=== PATIENT | female | born 1935 | race Caucasian/White ===

== ENCOUNTER 2018-12-24 13:10 | Observation (INO) ==
[2018-12-24] MEDS ORDERED: ONDANSETRON 4 MG/2 ML VIAL IV STA (14:11)
[2018-12-24] MEDS ORDERED: ONDANSETRON 4 MG/2 ML VIAL ONE ×2 (14:11→14:12)
[2018-12-24] MEDS ORDERED: DILTIAZEM 50 MG/10 ML VIAL IV STA (14:11)
[2018-12-24] MEDS ORDERED: DILTIAZEM 25 MG/5 ML VIAL IV ONE (14:12)
[2018-12-24 14:14] LABS: Basophils % 0.5 % (0.0-0.8); Eosinophils # 0.4 10*3/uL (0.0-0.87); Eosinophils % 4.9 % (0.00-10.9); Hematocrit 41.6 VOL% (35.7-47.0); Hemoglobin 13.6 GM/DL (12.0-16.0); Immature Granulocytes % 0.4 %; Immature Granulocytes Absolute 0.03 #; Lymphocytes % 38.1 % (21.3-54.2); Mean Corpuscular HGB Conc 32.7 GM/DL (32-36); Mean Corpuscular Hemoglobin 33 PG (27-34); Mean Platelet Volume 11.3 FL (9.6-12.0); Monocytes # 0.4 10*3/uL (0.11-0.8); Monocytes % 5.5 % (1.7-12.7); Neutrophils # 3.9 10*3/uL (1.4-7.4); Neutrophils % 50.6 % (38.7-73.9); Platelet Count 275 T/CUMM (130-400); Red Blood Count 4.16 MC/CUMM (3.8-5.5); Red Cell Distribution Width 12.3 % (9.3-17.3); White Blood Count 7.8 T/CUMM (4-12)
[2018-12-24] MEDS ORDERED: METOPROLOL TARTRATE 5 MG/5 ML VIAL IV STA (14:19)
[2018-12-24] MEDS ORDERED: METOPROLOL TARTRATE 5 MG/5 ML VIAL IV ONE (14:20)
[2018-12-24 14:24] LABS: INR 0.9; PT Patient Result 9.9 SECS; Partial Thromboplastin Time 23.8 SECS (0-40)
[2018-12-24 14:40] LABS: Albumin 3.7 G/DL (3.4-5.0); Bilirubin,Total 0.9 MG/DL (0.2-1.0); Calcium 9.1 MG/DL (8.5-10.1); Osmolality,Calculated 290.3 MOS/KG (273-304); Potassium 3.4 MMOL/L (3.5-5.1); Total Protein 7.3 G/DL (6.4-8.3)
[2018-12-24 14:47] LABS: Troponin I < 0.015 NG/ML (0.00-0.045)
[2018-12-24] MEDS ORDERED: PROMETHAZINE 25 MG/1 ML VIAL IM PRN (15:25)
[2018-12-24] MEDS ORDERED: ONDANSETRON 4 MG/2 ML VIAL IV PRN (15:25)
[2018-12-24] MEDS ORDERED: ACETAMINOPHEN 325 MG TABLET PO PRN (15:25)
[2018-12-24] MEDS ORDERED: POTASSIUM CHLORIDE 20 MEQ TABLET PO STA (15:29)
[2018-12-24] MEDS ORDERED: SUCRALFATE 1 GM TABLET PO PRN (15:30)
[2018-12-24] MEDS ORDERED: FEXOFENADINE 180 MG TABLET PO PRN (15:30)
[2018-12-24] MEDS ORDERED: BENZONATATE 100 MG CAPSULE PO PRN (15:30)
[2018-12-24] MEDS ORDERED: PANTOPRAZOLE 40 MG TABLET PO PRN (15:30)
[2018-12-24] MEDS ORDERED: DEXTROSE 50% 25 GM/50 ML SYRINGE IV PRN (15:53)
[2018-12-24] MEDS ORDERED: GLUCAGON 1 MG VIAL IM PRN (15:53)
[2018-12-24] MEDS ORDERED: ENOXAPARIN 80 MG/0.8 ML SYRINGE SUBCUT SCH (16:00)
[2018-12-24] MEDS ORDERED: MAGNESIUM SULF RIDER 2 GM in PREMIX 1 EACH IV PRN (16:16)
[2018-12-24] MEDS ORDERED: MAGNESIUM SULF RIDER 4 GM in PREMIX 1 EACH IV PRN (16:16)
[2018-12-24] MEDS: INSULIN LISPRO 100 UNIT/ML SUBCUT SCH ×2 (17:17→21:19)
[2018-12-24] MEDS: DILTIAZEM 30 MG TABLET PO SCH ×2 (17:38→21:23)
[2018-12-24] MEDS: SODIUM CHLORIDE 0.9% 1,000 ML IV SCH (17:45)
[2018-12-24 19:39] LABS: Apearance,Urine CLEAR (Clear); Bilirubin,Urine Negative (Negative); Blood, Urine Negative (Negative); Glucose,Urine (UA) Negative (Negative); Ketones,Urine Negative (Negative); Mucus,Urine Occasional /LPF (Occasional); Nitrite,Urine Negative (Negative); Protein,Urine Negative; Urine Color Yellow (Yellow); Urine Specific Gravity 1.013 (1.001-1.035); Urine Urobilinogen < 2.0 EU/DL (0.2-1.0); WBC,Urine <1 /HPF (0-6)
[2018-12-24 19:48] LABS: Barbiturates Screen,Urine Negative (Negative); Benzodiazepines Screen,Urine Negative (Negative); Cannabinoid Screen,Urine Negative (Negative); Opiate Screen,Urine Negative (Negative); Phencyclidine Screen,Urine Negative (Negative)
[2018-12-24] MEDS ORDERED: GABAPENTIN 600 MG TABLET PO SCH (21:00)
[2018-12-24] MEDS ORDERED: ACETAMINOPHEN 1300 MG PO SCH (21:00)
[2018-12-24] MEDS ORDERED: SIMVASTATIN 10 MG TABLET PO SCH (21:00)
[2018-12-24] MEDS: POTASSIUM CHLORIDE 20 MEQ TABLET PO SCH (21:24)
[2018-12-25] MEDS: SODIUM CHLORIDE 0.9% 1,000 ML IV SCH ×3 (04:10→09:38)
[2018-12-25 04:25] LABS: Basophils % 0.5 % (0.0-0.8); Eosinophils # 0.5 10*3/uL (0.0-0.87); Eosinophils % 6.4 % (0.00-10.9); Hematocrit 36.3 VOL% (35.7-47.0); Hemoglobin 11.6 GM/DL (12.0-16.0); Immature Granulocytes % 0.3 %; Immature Granulocytes Absolute 0.02 #; Lymphocytes # 3.4 10*3/uL (1.4-4.0); Lymphocytes % 45.1 % (21.3-54.2); Mean Corpuscular Hemoglobin 32 PG (27-34); Mean Corpuscular Volume 101.4 FL (87-102); Mean Platelet Volume 10.8 FL (9.6-12.0); Monocytes # 0.6 10*3/uL (0.11-0.8); Monocytes % 7.4 % (1.7-12.7); Neutrophils # 3.1 10*3/uL (1.4-7.4); Neutrophils % 40.3 % (38.7-73.9); Platelet Count 234 T/CUMM (130-400); Red Blood Count 3.58 MC/CUMM (3.8-5.5); Red Cell Distribution Width 12.4 % (9.3-17.3); White Blood Count 7.6 T/CUMM (4-12)
[2018-12-25 05:07] LABS: Calcium 8.5 MG/DL (8.5-10.1); Osmolality,Calculated 287.8 MOS/KG (273-304); Potassium 4.3 MMOL/L (3.5-5.1)
[2018-12-25] MEDS ORDERED: ASPIRIN EC 81 MG TABLET PO SCH (09:00)
[2018-12-25] MEDS ORDERED: CYANOCOBALAMIN 1000 MCG/1 ML VIAL IM SCH (09:00)
[2018-12-25] MEDS ORDERED: PANTOPRAZOLE 40 MG TABLET PO SCH (09:00)
[2018-12-25] MEDS ORDERED: CHOLECALCIFEROL 1,000 UNIT TABLET PO SCH (09:00)
[2018-12-25] MEDS ORDERED: LETROZOLE 2.5 MG TABLET PO SCH (09:00)
[2018-12-25] MEDS ORDERED: ESCITALOPRAM 10 MG TABLET PO SCH (09:00)
[2018-12-25] MEDS: INSULIN LISPRO 100 UNIT/ML SUBCUT SCH (09:07)
[2018-12-25] MEDS: POTASSIUM CHLORIDE 20 MEQ TABLET PO SCH (09:40)
[2018-12-25] MEDS: DILTIAZEM 30 MG TABLET PO SCH (09:40)
[2018-12-25 09:58] VITALS: BP 133/69
[2018-12-25] MEDS ORDERED: DILTIAZEM CD 120 MG CAPSULE PO SCH (10:30)
== END 2018-12-25 11:23 | disposition home or self-care (01) ==
LOC: N.EDINP 13:10 → N.ED 13:10 → N.TELEN 16:19
PROVIDERS: ADMIT Internal Medicine; ATTEND Internal Medicine

== ENCOUNTER 2019-10-07 11:47 | Inpatient (IN) ==
[2019-10-07 12:45] LABS: Hematocrit 39.9 VOL% (35.7-47.0); Hemoglobin 12.9 GM/DL (12.0-16.0); Mean Corpuscular HGB Conc 32.3 GM/DL (32-36); Mean Corpuscular Volume 100.8 FL (87-102); Red Blood Count 3.96 MC/CUMM (3.8-5.5); Red Cell Distribution Width 12.8 % (9.3-17.3); White Blood Count 9.2 T/CUMM (4-12)
[2019-10-07 12:46] LABS: Basophils % 0.4 % (0.0-0.8); Eosinophils # 0.3 10*3/uL (0.0-0.87); Eosinophils % 2.7 % (0.00-10.9); Immature Granulocytes % 0.3 %; Immature Granulocytes Absolute 0.03 #; Lymphocytes # 2.3 10*3/uL (1.4-4.0); Lymphocytes % 24.6 % (21.3-54.2); Mean Platelet Volume 10.6 FL (9.6-12.0); Platelet Count 248 T/CUMM (130-400)
[2019-10-07 12:53] LABS: INR 0.9; Partial Thromboplastin Time 22.9 SECS (20.8-36.0)
[2019-10-07 12:57] LABS: Troponin I < 0.015 NG/ML (0.00-0.045)
[2019-10-07 13:47] LABS: Bilirubin,Total 0.4 MG/DL (0.2-1.0); Calcium 9.1 MG/DL (8.5-10.1); Total Protein 7.2 G/DL (6.4-8.3)
[2019-10-07] MEDS ORDERED: ONDANSETRON 4 MG/2 ML VIAL ONE (13:51)
[2019-10-07] MEDS ORDERED: ASPIRIN 325 MG TABLET ONE (13:51)
[2019-10-07] MEDS ORDERED: ASPIRIN 325 MG TABLET PO STA (13:52)
[2019-10-07] MEDS ORDERED: ONDANSETRON 4 MG/2 ML VIAL IV STA (13:52)
[2019-10-07] MEDS ORDERED: NITROGLYCERIN SL 0.4 MG TABLET SL STA (13:52)
[2019-10-07] MEDS ORDERED: NITROGLYCERIN SL 0.4 MG TABLET SL PRN (16:13)
[2019-10-07] MEDS ORDERED: MORPHINE 4 MG/1 ML VIAL IV PRN (16:17)
[2019-10-07] MEDS ORDERED: ONDANSETRON 4 MG/2 ML VIAL IV PRN (16:17)
[2019-10-07] MEDS ORDERED: DOCUSATE SODIUM 100 MG CAPSULE PO PRN (16:17)
[2019-10-07 16:18] LABS: Troponin I 0.283 NG/ML (0.00-0.045)
[2019-10-07] MEDS ORDERED: METOPROLOL TARTRATE 25 MG TABLET PO SCH (16:30)
[2019-10-07] MEDS ORDERED: ENOXAPARIN 100 MG/ML SYRINGE SUBCUT SCH (16:30)
[2019-10-07 17:14] LABS: Risk Ratio 3.34; Thyroid Stimulating Hormone 0.888 uIU/ml (0.358-3.74); VLDL CHOLESTEROL 29.2 MG/DL
[2019-10-07 19:43] LABS: CKMB % 6.7 %
[2019-10-07 19:47] LABS: Troponin I 2.63 NG/ML (0.00-0.045)
[2019-10-07] MEDS ORDERED: SIMVASTATIN 10 MG TABLET PO SCH (21:00)
[2019-10-07] MEDS ORDERED: FEXOFENADINE 180 MG TABLET PO PRN (21:17)
[2019-10-07] MEDS: DILTIAZEM CD 120 MG CAPSULE PO SCH (21:20)
[2019-10-07] MEDS: METOPROLOL TARTRATE 50 MG TABLET PO SCH (21:21)
[2019-10-07] MEDS: ENOXAPARIN 100 MG/ML SYRINGE SUBCUT SCH (21:22)
[2019-10-07] MEDS: ATORVASTATIN 40 MG TABLET PO SCH (22:30)
[2019-10-07] MEDS: GABAPENTIN 600 MG TABLET PO SCH (22:30)
[2019-10-07] MEDS: POTASSIUM CHLORIDE 20 MEQ TABLET PO SCH (22:31)
[2019-10-08] MEDS: NITROGLYCERIN 2% OINT 1 INCH/GM PACK TOP SCH ×4 (05:56→17:12)
[2019-10-08 06:51] LABS: Basophils # 0.1 10*3/uL (0.0-0.2); Basophils % 0.6 % (0.0-0.8); Eosinophils # 0.3 10*3/uL (0.0-0.87); Eosinophils % 3.5 % (0.00-10.9); Hematocrit 40.5 VOL% (35.7-47.0); Hemoglobin 13.2 GM/DL (12.0-16.0); Immature Granulocytes % 0.2 %; Immature Granulocytes Absolute 0.02 #; Lymphocytes # 2.9 10*3/uL (1.4-4.0); Lymphocytes % 32.7 % (21.3-54.2); Mean Corpuscular HGB Conc 32.6 GM/DL (32-36); Mean Corpuscular Volume 101.8 FL (87-102); Mean Platelet Volume 10.5 FL (9.6-12.0); Monocytes % 8.1 % (1.7-12.7); Neutrophils % 54.9 % (38.7-73.9); Platelet Count 279 T/CUMM (130-400); Red Blood Count 3.98 MC/CUMM (3.8-5.5); Red Cell Distribution Width 13.1 % (9.3-17.3); White Blood Count 8.9 T/CUMM (4-12)
[2019-10-08 07:19] LABS: Calcium 9.2 MG/DL (8.5-10.1); Osmolality,Calculated 284.3 MOS/KG (273-304)
[2019-10-08] MEDS ORDERED: MAGNESIUM SULF RIDER 2 GM in PREMIX 1 EACH IV PRN ×2 (08:07→08:08)
[2019-10-08] MEDS ORDERED: POTASSIUM CHLORIDE RIDER 10 MEQ in PREMIX 1 EACH IV PRN ×2 (08:07→08:08)
[2019-10-08] MEDS ORDERED: diphenhydrAMINE CAP 25 MG CAPSULE PO ONE (08:08)
[2019-10-08] MEDS ORDERED: DIAZEPAM 5 MG TABLET PO ONE (08:08)
[2019-10-08] MEDS ORDERED: SODIUM CHLORIDE 0.45% 1,000 ML IV SCH (08:30)
[2019-10-08] MEDS ORDERED: ASPIRIN CHEW 81 MG TABLET PO SCH (09:00)
[2019-10-08] MEDS: MAGNESIUM OXIDE 400 MG TABLET PO SCH (09:16)
[2019-10-08] MEDS: ASPIRIN EC 325 MG TABLET PO SCH (09:16)
[2019-10-08] MEDS: METOPROLOL TARTRATE 50 MG TABLET PO SCH ×2 (09:17→21:32)
[2019-10-08] MEDS: POTASSIUM CHLORIDE 20 MEQ TABLET PO SCH ×2 (09:17→21:33)
[2019-10-08] MEDS: GABAPENTIN 600 MG TABLET PO SCH ×2 (09:17→21:32)
[2019-10-08] MEDS: DILTIAZEM CD 120 MG CAPSULE PO SCH ×2 (09:17→21:33)
[2019-10-08] MEDS: PANTOPRAZOLE 40 MG TABLET PO SCH (09:17)
[2019-10-08] MEDS: ENOXAPARIN 100 MG/ML SYRINGE SUBCUT SCH ×2 (09:17→21:37)
[2019-10-08] MEDS: LISINOPRIL 10 MG TABLET PO SCH (16:06)
[2019-10-08] MEDS ORDERED: LISINOPRIL 5 MG TABLET PO SCH (16:30)
[2019-10-08] MEDS: ATORVASTATIN 40 MG TABLET PO SCH (21:33)
[2019-10-09] MEDS: NITROGLYCERIN 2% OINT 1 INCH/GM PACK TOP SCH ×3 (03:40→11:54)
[2019-10-09 05:16] LABS: Basophils % 0.4 % (0.0-0.8); Eosinophils # 0.4 10*3/uL (0.0-0.87); Eosinophils % 4.7 % (0.00-10.9); Hematocrit 37.4 VOL% (35.7-47.0); Hemoglobin 11.9 GM/DL (12.0-16.0); Immature Granulocytes % 0.4 %; Immature Granulocytes Absolute 0.03 #; Lymphocytes # 3.1 10*3/uL (1.4-4.0); Lymphocytes % 39.4 % (21.3-54.2); Mean Corpuscular HGB Conc 31.8 GM/DL (32-36); Mean Corpuscular Volume 102.7 FL (87-102); Mean Platelet Volume 10.6 FL (9.6-12.0); Monocytes % 9.9 % (1.7-12.7); Neutrophils % 45.2 % (38.7-73.9); Platelet Count 224 T/CUMM (130-400); Red Blood Count 3.64 MC/CUMM (3.8-5.5); Red Cell Distribution Width 12.9 % (9.3-17.3); White Blood Count 7.9 T/CUMM (4-12)
[2019-10-09 05:44] LABS: Osmolality,Calculated 286.1 MOS/KG (273-304)
[2019-10-09] MEDS ORDERED: DIAZEPAM 5 MG TABLET PO ONE (07:00)
[2019-10-09] MEDS ORDERED: diphenhydrAMINE CAP 25 MG CAPSULE PO ONE (07:00)
[2019-10-09] MEDS: SODIUM CHLORIDE 0.45% 1,000 ML IV SCH ×2 (07:46→18:34)
[2019-10-09] MEDS ORDERED: LIDOCAINE 1%/EPI INJ 20 ML VIAL ONE (07:47)
[2019-10-09] MEDS ORDERED: MIDAZOLAM 2 MG/2 ML VIAL ONE (07:47)
[2019-10-09] MEDS ORDERED: HEPARIN/NACL 0.9% 2 UNITS/ML 1,000 ML IV ONE (07:47)
[2019-10-09] MEDS ORDERED: fentaNYL 100 MCG/2 ML VIAL ONE (07:47)
[2019-10-09] MEDS ORDERED: ASPIRIN 325 MG TABLET ONE (08:21)
[2019-10-09] MEDS ORDERED: ENOXAPARIN 60 MG/0.6 ML SYRINGE ONE (08:40)
[2019-10-09] MEDS ORDERED: TIROFIBAN 5,000 MCG/100 ML PREMIX IV SCH (09:00)
[2019-10-09] MEDS ORDERED: TIROFIBAN 5,000 MCG/100 ML PREMIX IV ONE (09:02)
[2019-10-09] MEDS ORDERED: TICAGRELOR 90 MG TABLET ONE (09:08)
[2019-10-09] MEDS ORDERED: SODIUM CHLORIDE 0.9% 1,000 ML IV SCH (10:00)
[2019-10-09] MEDS: DILTIAZEM CD 120 MG CAPSULE PO SCH ×2 (10:18→21:42)
[2019-10-09] MEDS: POTASSIUM CHLORIDE 20 MEQ TABLET PO SCH ×2 (10:18→21:42)
[2019-10-09] MEDS: GABAPENTIN 600 MG TABLET PO SCH ×2 (10:19→21:42)
[2019-10-09] MEDS: ENOXAPARIN 100 MG/ML SYRINGE SUBCUT SCH ×2 (10:19→21:41)
[2019-10-09] MEDS: MAGNESIUM OXIDE 400 MG TABLET PO SCH (10:19)
[2019-10-09] MEDS: LISINOPRIL 10 MG TABLET PO SCH (10:20)
[2019-10-09] MEDS: PANTOPRAZOLE 40 MG TABLET PO SCH (10:20)
[2019-10-09] MEDS: METOPROLOL TARTRATE 25 MG TABLET PO SCH ×2 (10:21→21:42)
[2019-10-09] MEDS: METOPROLOL TARTRATE 50 MG TABLET PO SCH (10:57)
[2019-10-09] MEDS: ASPIRIN EC 325 MG TABLET PO SCH (10:57)
[2019-10-09] MEDS ORDERED: ATORVASTATIN 80 MG TABLET PO SCH (21:00)
[2019-10-09] MEDS: TICAGRELOR 90 MG TABLET PO SCH (21:42)
[2019-10-10 03:01] LABS: Calcium 8.9 MG/DL (8.5-10.1); Osmolality,Calculated 283.3 MOS/KG (273-304)
[2019-10-10 03:02] LABS: Basophils % 0.2 % (0.0-0.8); Eosinophils # 0.2 10*3/uL (0.0-0.87); Eosinophils % 1.8 % (0.00-10.9); Hematocrit 38.6 VOL% (35.7-47.0); Hemoglobin 12.7 GM/DL (12.0-16.0); Immature Granulocytes % 0.3 %; Immature Granulocytes Absolute 0.03 #; Lymphocytes # 2.1 10*3/uL (1.4-4.0); Lymphocytes % 21.7 % (21.3-54.2); Mean Corpuscular HGB Conc 32.9 GM/DL (32-36); Mean Platelet Volume 10.6 FL (9.6-12.0); Monocytes % 9.6 % (1.7-12.7); Neutrophils % 66.4 % (38.7-73.9); Platelet Count 236 T/CUMM (130-400); Red Cell Distribution Width 12.8 % (9.3-17.3); White Blood Count 9.6 T/CUMM (4-12)
[2019-10-10 08:47] VITALS: BP 165/75
[2019-10-10] MEDS ORDERED: ASPIRIN EC 81 MG TABLET PO SCH (09:00)
[2019-10-10] MEDS: SODIUM CHLORIDE 0.45% 1,000 ML IV SCH ×2 (09:25→10:45)
[2019-10-10] MEDS: DILTIAZEM CD 120 MG CAPSULE PO SCH (09:26)
[2019-10-10] MEDS: TICAGRELOR 90 MG TABLET PO SCH (09:26)
[2019-10-10] MEDS: MAGNESIUM OXIDE 400 MG TABLET PO SCH (09:27)
[2019-10-10] MEDS: ENOXAPARIN 100 MG/ML SYRINGE SUBCUT SCH (09:27)
[2019-10-10] MEDS: POTASSIUM CHLORIDE 20 MEQ TABLET PO SCH (09:27)
[2019-10-10] MEDS: METOPROLOL TARTRATE 25 MG TABLET PO SCH (09:27)
[2019-10-10] MEDS: GABAPENTIN 600 MG TABLET PO SCH (09:28)
[2019-10-10] MEDS: PANTOPRAZOLE 40 MG TABLET PO SCH (09:28)
[2019-10-10] MEDS: LISINOPRIL 10 MG TABLET PO SCH (09:28)
[2019-10-10] MEDS ORDERED: LISINOPRIL 20 MG TABLET PO SCH (10:50)
== END 2019-10-10 12:20 | disposition home or self-care (01) | DRG 247 ==
LOC: N.EDINP 11:47 → N.ED 11:47 → N.EDINP 17:00 → N.2W 17:06 → N.TELEN 18:20
PROVIDERS: ADMIT Hospitalist; ATTEND Hospitalist
PROC: CLCCHCL (ICD-10-PCS; 2019-10-09 09:15)

== ENCOUNTER 2021-04-01 09:53 | Inpatient (IN) ==
[2021-04-01] MEDS ORDERED: SODIUM CHLORIDE 0.9% 1,000 ML IV STA (10:25)
[2021-04-01] MEDS ORDERED: ACETAMINOPHEN 500 MG TABLET PO STA (10:26)
[2021-04-01 11:05] LABS: Basophils % 0.2 % (0.0-0.8); Hematocrit 34.9 VOL% (35.7-47.0); Hemoglobin 11.3 GM/DL (12.0-16.0); Immature Granulocytes Absolute 0.17 #; Lymphocytes # 0.8 10*3/uL (1.4-4.0); Lymphocytes % 4.6 % (21.3-54.2); Mean Corpuscular HGB Conc 32.4 GM/DL (32-36); Mean Corpuscular Volume 98.9 FL (87-102); Neutrophils % 89.2 % (38.7-73.9); Platelet Count 288 T/CUMM (130-400); Red Blood Count 3.53 MC/CUMM (3.8-5.5); Red Cell Distribution Width 13.1 % (9.3-17.3)
[2021-04-01 11:22] LABS: Band Neutrophils 2 % (0-10); Lymphocytes 5 % (20-55); Microcytosis Slight; Ovalocytes Slight; Platelet Estimate Adequate; Segmented Neutrophils 88 % (50-85); Total Cells Counted 100
[2021-04-01 11:39] LABS: Albumin 2.5 G/DL (3.4-5.0); Bilirubin,Total 0.6 MG/DL (0.2-1.0); Calcium 8.8 MG/DL (8.5-10.1); Potassium 3.1 MMOL/L (3.5-5.1); Total Protein 7.1 G/DL (6.4-8.2)
[2021-04-01 12:11] LABS: Amorphous Crystals,Urine Few /HPF (Few); Bilirubin,Urine Negative (Negative); Blood, Urine Small mg/dL (Negative); Glucose,Urine (UA) Negative (Negative); Ketones,Urine 20 mg/dL (Negative); Mucus,Urine Few /LPF (Occasional); Nitrite,Urine Negative (Negative); Protein,Urine 100 MG/DL; Red Blood Cell Casts,Urine 4 /LPF (<1); Urine Appearance Slightly Hazy (Clear); Urine Color Yellow (Yellow); Urine Specific Gravity 1.019 (1.001-1.035); Urine Urobilinogen < 2.0 EU/DL (0.2-1.0)
[2021-04-01] MEDS ORDERED: LEVOFLOXACIN 500 MG TABLET PO STA (12:18)
[2021-04-01] MEDS ORDERED: guaiFENesin/DM ER 600-30 MG TABLET PO PRN (13:09)
[2021-04-01] MEDS ORDERED: DEXTROSE 50% 25 GM/50 ML VIAL IV PRN (13:09)
[2021-04-01] MEDS ORDERED: GLUCAGON 1 MG VIAL IM PRN (13:09)
[2021-04-01] MEDS ORDERED: ACETAMINOPHEN 325 MG TABLET PO PRN (13:09)
[2021-04-01] MEDS ORDERED: ALBUTEROL 2.5 MG/3 ML NEB RESP TX PRN (13:09)
[2021-04-01] MEDS ORDERED: BISACODYL 5 MG TABLET PO PRN (13:09)
[2021-04-01] MEDS ORDERED: NITROGLYCERIN SL 0.4 MG TABLET SL PRN (13:18)
[2021-04-01] MEDS ORDERED: VALSARTAN 160 MG TABLET PO SCH (13:30)
[2021-04-01] MEDS ORDERED: SODIUM CHLORIDE 0.9% 1,000 ML IV SCH (13:30)
[2021-04-01] MEDS ORDERED: LEVOFLOXACIN INJ 750 MG/150 ML PREMIX IV SCH (13:30)
[2021-04-01] MEDS: SODIUM CHLOR 0.9% KCL 20 MEQ 20 MEQ/1,000 ML BAG IV SCH (16:15)
[2021-04-01] MEDS: ENOXAPARIN 40 MG/0.4 ML SYRINGE SUBCUT SCH (16:36)
[2021-04-01] MEDS: METOPROLOL SUCCINATE XL 50 MG TABLET PO SCH (16:37)
[2021-04-01] MEDS: OLMESARTAN 20 MG TABLET PO SCH (18:29)
[2021-04-01] MEDS ORDERED: POTASSIUM CHLORIDE 20 MEQ TABLET PO SCH (21:00)
[2021-04-01] MEDS: ATORVASTATIN 80 MG TABLET PO SCH (21:20)
[2021-04-01] MEDS: DILTIAZEM CD 120 MG CAPSULE PO SCH (21:21)
[2021-04-01] MEDS: GABAPENTIN 600 MG TABLET PO SCH (21:21)
[2021-04-01] MEDS: TICAGRELOR 90 MG TABLET PO SCH (21:21)
[2021-04-02] MEDS: SODIUM CHLOR 0.9% KCL 20 MEQ 20 MEQ/1,000 ML BAG IV SCH ×2 (02:10→11:39)
[2021-04-02 05:17] LABS: Basophils % 0.2 % (0.0-0.8); Eosinophils % 0.1 % (0.00-10.9); Hematocrit 32.3 VOL% (35.7-47.0); Hemoglobin 10.3 GM/DL (12.0-16.0); Immature Granulocytes % 1.1 %; Immature Granulocytes Absolute 0.17 #; Lymphocytes # 1.3 10*3/uL (1.4-4.0); Lymphocytes % 8.5 % (21.3-54.2); Mean Corpuscular HGB Conc 31.9 GM/DL (32-36); Monocytes % 6.7 % (1.7-12.7); Neutrophils % 83.4 % (38.7-73.9); Platelet Count 262 T/CUMM (130-400); Red Blood Count 3.23 MC/CUMM (3.8-5.5); Red Cell Distribution Width 13.2 % (9.3-17.3); White Blood Count 14.8 T/CUMM (4-12)
[2021-04-02 05:38] LABS: Band Neutrophils 1 % (0-10); Hypochromasia 1+; Lymphocytes 10 % (20-55); Microcytosis 1+; Platelet Estimate Adequate; Segmented Neutrophils 83 % (50-85); Total Cells Counted 100
[2021-04-02 05:57] LABS: Calcium 8.4 MG/DL (8.5-10.1); Osmolality,Calculated 279.4 MOS/KG (273-304); Potassium 3.1 MMOL/L (3.5-5.1); Risk Ratio 1.94; VLDL CHOLESTEROL 14.4 MG/DL
[2021-04-02] MEDS ORDERED: MAGNESIUM SULF RIDER 4 GM/100 ML PREMIX IV PRN (08:00)
[2021-04-02] MEDS ORDERED: MAGNESIUM SULF RIDER 2 GM/50 ML PREMIX IV PRN (08:00)
[2021-04-02] MEDS: OLMESARTAN 20 MG TABLET PO SCH (08:47)
[2021-04-02] MEDS: MAGNESIUM OXIDE 400 MG TABLET PO SCH (08:47)
[2021-04-02] MEDS: ASPIRIN EC 81 MG TABLET PO SCH (08:47)
[2021-04-02] MEDS: TICAGRELOR 90 MG TABLET PO SCH ×2 (08:49→21:05)
[2021-04-02] MEDS: POTASSIUM CHLORIDE 20 MEQ TABLET PO SCH ×3 (08:49→21:03)
[2021-04-02] MEDS: ESCITALOPRAM 10 MG TABLET PO SCH (08:49)
[2021-04-02] MEDS: METOPROLOL SUCCINATE XL 50 MG TABLET PO SCH (08:49)
[2021-04-02] MEDS: DILTIAZEM CD 120 MG CAPSULE PO SCH ×2 (08:49→21:05)
[2021-04-02] MEDS: CHOLECALCIFEROL 1,000 UNIT TABLET PO SCH (08:49)
[2021-04-02] MEDS ORDERED: PANTOPRAZOLE 40 MG TABLET PO SCH (09:00)
[2021-04-02] MEDS ORDERED: TUBERCULIN SKIN TEST 0.1 ML SYRINGE INTRADERM ONE (10:51)
[2021-04-02] MEDS: LEVOFLOXACIN INJ 500 MG/100 ML PREMIX IV SCH (11:39)
[2021-04-02] MEDS: metroNIDAZOLE INJ 500 MG/100 ML PREMIX IV SCH ×2 (11:39→18:33)
[2021-04-02] MEDS: ENOXAPARIN 40 MG/0.4 ML SYRINGE SUBCUT SCH (12:47)
[2021-04-02] MEDS: ONDANSETRON 4 MG/2 ML VIAL IV PRN (21:00)
[2021-04-02] MEDS: GABAPENTIN 600 MG TABLET PO SCH (21:03)
[2021-04-02] MEDS: ATORVASTATIN 80 MG TABLET PO SCH (21:05)
[2021-04-03] MEDS: SODIUM CHLOR 0.9% KCL 20 MEQ 20 MEQ/1,000 ML BAG IV SCH ×3 (00:43→23:38)
[2021-04-03] MEDS: metroNIDAZOLE INJ 500 MG/100 ML PREMIX IV SCH ×3 (03:39→18:04)
[2021-04-03] MEDS: ESCITALOPRAM 10 MG TABLET PO SCH ×2 (08:13→08:32)
[2021-04-03] MEDS: CHOLECALCIFEROL 1,000 UNIT TABLET PO SCH ×2 (08:13→08:32)
[2021-04-03] MEDS: TICAGRELOR 90 MG TABLET PO SCH ×3 (08:13→21:05)
[2021-04-03] MEDS: POTASSIUM CHLORIDE 20 MEQ TABLET PO SCH ×3 (08:13→21:26)
[2021-04-03] MEDS: METOPROLOL SUCCINATE XL 50 MG TABLET PO SCH ×2 (08:14→08:32)
[2021-04-03] MEDS: MAGNESIUM OXIDE 400 MG TABLET PO SCH ×2 (08:14→08:32)
[2021-04-03] MEDS: OLMESARTAN 20 MG TABLET PO SCH ×2 (08:14→08:31)
[2021-04-03] MEDS: ASPIRIN EC 81 MG TABLET PO SCH ×2 (08:14→08:31)
[2021-04-03] MEDS: DILTIAZEM CD 120 MG CAPSULE PO SCH ×3 (08:14→21:05)
[2021-04-03 08:27] LABS: Basophils % 0.1 % (0.0-0.8); Eosinophils % 0.2 % (0.00-10.9); Hematocrit 31.5 VOL% (35.7-47.0); Hemoglobin 10.1 GM/DL (12.0-16.0); Immature Granulocytes % 1.1 %; Immature Granulocytes Absolute 0.15 #; Lymphocytes # 1.1 10*3/uL (1.4-4.0); Lymphocytes % 8.1 % (21.3-54.2); Mean Corpuscular HGB Conc 32.1 GM/DL (32-36); Mean Corpuscular Volume 99.1 FL (87-102); Mean Platelet Volume 9.8 FL (9.6-12.0); Monocytes % 6.8 % (1.7-12.7); Neutrophils % 83.7 % (38.7-73.9); Platelet Count 284 T/CUMM (130-400); Red Blood Count 3.18 MC/CUMM (3.8-5.5); Red Cell Distribution Width 13.2 % (9.3-17.3)
[2021-04-03 08:44] LABS: Calcium 8.2 MG/DL (8.5-10.1); Osmolality,Calculated 276.7 MOS/KG (273-304); Potassium 4.1 MMOL/L (3.5-5.1)
[2021-04-03 08:57] LABS: Band Neutrophils 5 % (0-10); Hypochromasia Slight; Lymphocytes 8 % (20-55); Segmented Neutrophils 82 % (50-85); Total Cells Counted 100
[2021-04-03 08:58] LABS: Microcytosis 1+
[2021-04-03 08:59] LABS: Platelet Estimate Normal
[2021-04-03] MEDS: LEVOFLOXACIN INJ 500 MG/100 ML PREMIX IV SCH (11:07)
[2021-04-03] MEDS: ENOXAPARIN 40 MG/0.4 ML SYRINGE SUBCUT SCH (13:08)
[2021-04-03] MEDS: ONDANSETRON 4 MG/2 ML VIAL IV PRN ×2 (13:09→18:04)
[2021-04-03] MEDS: ATORVASTATIN 80 MG TABLET PO SCH (21:04)
[2021-04-03] MEDS: GABAPENTIN 600 MG TABLET PO SCH (21:05)
[2021-04-04] MEDS: metroNIDAZOLE INJ 500 MG/100 ML PREMIX IV SCH ×3 (03:08→20:59)
[2021-04-04] MEDS: SODIUM CHLOR 0.9% KCL 20 MEQ 20 MEQ/1,000 ML BAG IV SCH ×2 (04:00→13:55)
[2021-04-04 05:21] LABS: Basophils % 0.2 % (0.0-0.8); Eosinophils # 0.1 10*3/uL (0.0-0.87); Eosinophils % 0.4 % (0.00-10.9); Hematocrit 32.2 VOL% (35.7-47.0); Hemoglobin 10.7 GM/DL (12.0-16.0); Immature Granulocytes Absolute 0.15 #; Lymphocytes % 6.2 % (21.3-54.2); Mean Corpuscular HGB Conc 33.2 GM/DL (32-36); Mean Platelet Volume 9.6 FL (9.6-12.0); Monocytes % 6.6 % (1.7-12.7); Neutrophils % 85.6 % (38.7-73.9); Platelet Count 307 T/CUMM (130-400); Red Blood Count 3.32 MC/CUMM (3.8-5.5); Red Cell Distribution Width 13.2 % (9.3-17.3); White Blood Count 15.6 T/CUMM (4-12)
[2021-04-04 05:52] LABS: Calcium 8.5 MG/DL (8.5-10.1); Osmolality,Calculated 277.5 MOS/KG (273-304); Potassium 4.5 MMOL/L (3.5-5.1)
[2021-04-04] MEDS: TICAGRELOR 90 MG TABLET PO SCH (08:47)
[2021-04-04] MEDS: ASPIRIN EC 81 MG TABLET PO SCH (08:47)
[2021-04-04] MEDS: METOPROLOL SUCCINATE XL 50 MG TABLET PO SCH (08:47)
[2021-04-04] MEDS: CHOLECALCIFEROL 1,000 UNIT TABLET PO SCH (08:48)
[2021-04-04] MEDS: ESCITALOPRAM 10 MG TABLET PO SCH (08:48)
[2021-04-04] MEDS: POTASSIUM CHLORIDE 20 MEQ TABLET PO SCH ×2 (08:48→20:59)
[2021-04-04] MEDS: MAGNESIUM OXIDE 400 MG TABLET PO SCH (08:48)
[2021-04-04] MEDS: DILTIAZEM CD 120 MG CAPSULE PO SCH ×2 (08:48→21:01)
[2021-04-04] MEDS: OLMESARTAN 20 MG TABLET PO SCH (08:48)
[2021-04-04] MEDS ORDERED: MEROPENEM 2,000 MG in SODIUM CHLORIDE 0.9% 100 ML IV SCH (10:30)
[2021-04-04] MEDS ORDERED: AZTREONAM 1,000 MG in SODIUM CHLORIDE 0.9% 100 ML IV SCH (10:30)
[2021-04-04] MEDS: MEROPENEM 500 MG in SODIUM CHLORIDE 0.9% 100 ML IV SCH ×3 (11:36→23:35)
[2021-04-04] MEDS: ENOXAPARIN 40 MG/0.4 ML SYRINGE SUBCUT SCH (14:28)
[2021-04-04] MEDS: ATORVASTATIN 80 MG TABLET PO SCH (20:59)
[2021-04-04] MEDS: GABAPENTIN 600 MG TABLET PO SCH (20:59)
[2021-04-04 21:51] LABS: IgA Serum (MAYO) 184 mg/dL (61 - 356)
[2021-04-05 00:11] LABS: Specimen Source SPUTUM
[2021-04-05] MEDS: SODIUM CHLOR 0.9% KCL 20 MEQ 20 MEQ/1,000 ML BAG IV SCH ×5 (02:43→23:27)
[2021-04-05] MEDS: metroNIDAZOLE INJ 500 MG/100 ML PREMIX IV SCH (03:26)
[2021-04-05] MEDS: MEROPENEM 500 MG in SODIUM CHLORIDE 0.9% 100 ML IV SCH ×4 (05:30→22:57)
[2021-04-05 06:09] LABS: Basophils % 0.2 % (0.0-0.8); Eosinophils # 0.3 10*3/uL (0.0-0.87); Hematocrit 33.2 VOL% (35.7-47.0); Hemoglobin 10.6 GM/DL (12.0-16.0); Immature Granulocytes % 1.4 %; Immature Granulocytes Absolute 0.19 #; Lymphocytes # 1.2 10*3/uL (1.4-4.0); Lymphocytes % 8.5 % (21.3-54.2); Mean Corpuscular HGB Conc 31.9 GM/DL (32-36); Mean Corpuscular Volume 98.8 FL (87-102); Mean Platelet Volume 9.6 FL (9.6-12.0); Monocytes % 6.5 % (1.7-12.7); Neutrophils % 81.4 % (38.7-73.9); Platelet Count 345 T/CUMM (130-400); Red Blood Count 3.36 MC/CUMM (3.8-5.5); Red Cell Distribution Width 13.1 % (9.3-17.3); White Blood Count 13.8 T/CUMM (4-12)
[2021-04-05 06:21] LABS: Calcium 8.5 MG/DL (8.5-10.1); Osmolality,Calculated 272.8 MOS/KG (273-304); Potassium 4.4 MMOL/L (3.5-5.1)
[2021-04-05] MEDS: OLMESARTAN 20 MG TABLET PO SCH (08:34)
[2021-04-05] MEDS: DILTIAZEM CD 120 MG CAPSULE PO SCH ×2 (08:34→20:51)
[2021-04-05] MEDS: CHOLECALCIFEROL 1,000 UNIT TABLET PO SCH (08:34)
[2021-04-05] MEDS: ASPIRIN EC 81 MG TABLET PO SCH (08:34)
[2021-04-05] MEDS: POTASSIUM CHLORIDE 20 MEQ TABLET PO SCH ×2 (08:34→20:51)
[2021-04-05] MEDS: MAGNESIUM OXIDE 400 MG TABLET PO SCH (08:34)
[2021-04-05] MEDS: METOPROLOL SUCCINATE XL 50 MG TABLET PO SCH (08:35)
[2021-04-05] MEDS: ESCITALOPRAM 10 MG TABLET PO SCH (08:35)
[2021-04-05] MEDS: NYSTATIN 500,000 UNIT/5 ML UDCUP SWISH/SWAL SCH ×3 (12:59→20:50)
[2021-04-05] MEDS: ENOXAPARIN 40 MG/0.4 ML SYRINGE SUBCUT SCH (13:00)
[2021-04-05] MEDS: ATORVASTATIN 80 MG TABLET PO SCH (20:51)
[2021-04-05] MEDS: GABAPENTIN 600 MG TABLET PO SCH (20:51)
[2021-04-06] MEDS: MEROPENEM 500 MG in SODIUM CHLORIDE 0.9% 100 ML IV SCH ×4 (04:25→23:59)
[2021-04-06 06:04] LABS: Basophils % 0.3 % (0.0-0.8); Eosinophils # 0.5 10*3/uL (0.0-0.87); Eosinophils % 4.1 % (0.00-10.9); Hematocrit 33.6 VOL% (35.7-47.0); Immature Granulocytes % 1.3 %; Immature Granulocytes Absolute 0.16 #; Lymphocytes # 1.4 10*3/uL (1.4-4.0); Lymphocytes % 10.6 % (21.3-54.2); Mean Corpuscular HGB Conc 32.7 GM/DL (32-36); Mean Platelet Volume 9.4 FL (9.6-12.0); Monocytes % 6.1 % (1.7-12.7); Neutrophils % 77.6 % (38.7-73.9); Platelet Count 381 T/CUMM (130-400); Red Blood Count 3.43 MC/CUMM (3.8-5.5); White Blood Count 12.8 T/CUMM (4-12)
[2021-04-06 06:26] LABS: Calcium 8.6 MG/DL (8.5-10.1); Osmolality,Calculated 273.7 MOS/KG (273-304); Potassium 4.8 MMOL/L (3.5-5.1)
[2021-04-06] MEDS: METOPROLOL SUCCINATE XL 50 MG TABLET PO SCH (09:14)
[2021-04-06] MEDS: CHOLECALCIFEROL 1,000 UNIT TABLET PO SCH (09:14)
[2021-04-06] MEDS: MAGNESIUM OXIDE 400 MG TABLET PO SCH (09:14)
[2021-04-06] MEDS: POTASSIUM CHLORIDE 20 MEQ TABLET PO SCH ×2 (09:14→21:02)
[2021-04-06] MEDS: DILTIAZEM CD 120 MG CAPSULE PO SCH ×2 (09:14→21:01)
[2021-04-06] MEDS: OLMESARTAN 20 MG TABLET PO SCH (09:14)
[2021-04-06] MEDS: ASPIRIN EC 81 MG TABLET PO SCH (09:15)
[2021-04-06] MEDS: NYSTATIN 500,000 UNIT/5 ML UDCUP SWISH/SWAL SCH ×4 (09:15→21:02)
[2021-04-06] MEDS: ESCITALOPRAM 10 MG TABLET PO SCH (09:15)
[2021-04-06] MEDS: ENOXAPARIN 40 MG/0.4 ML SYRINGE SUBCUT SCH (13:33)
[2021-04-06] MEDS: SODIUM CHLOR 0.9% KCL 20 MEQ 20 MEQ/1,000 ML BAG IV SCH ×2 (18:44→21:00)
[2021-04-06] MEDS: GABAPENTIN 600 MG TABLET PO SCH (21:02)
[2021-04-06] MEDS: ATORVASTATIN 80 MG TABLET PO SCH (21:02)
[2021-04-07 05:28] LABS: Basophils % 0.3 % (0.0-0.8); Eosinophils # 0.6 10*3/uL (0.0-0.87); Eosinophils % 4.3 % (0.00-10.9); Hematocrit 33.1 VOL% (35.7-47.0); Hemoglobin 10.8 GM/DL (12.0-16.0); Immature Granulocytes % 1.3 %; Immature Granulocytes Absolute 0.17 #; Lymphocytes # 1.7 10*3/uL (1.4-4.0); Lymphocytes % 13.3 % (21.3-54.2); Mean Corpuscular HGB Conc 32.6 GM/DL (32-36); Mean Corpuscular Volume 99.1 FL (87-102); Mean Platelet Volume 9.4 FL (9.6-12.0); Monocytes % 7.3 % (1.7-12.7); Neutrophils % 73.5 % (38.7-73.9); Platelet Count 399 T/CUMM (130-400); Red Blood Count 3.34 MC/CUMM (3.8-5.5); Red Cell Distribution Width 12.9 % (9.3-17.3)
[2021-04-07] MEDS: MEROPENEM 500 MG in SODIUM CHLORIDE 0.9% 100 ML IV SCH ×5 (05:49→23:19)
[2021-04-07 05:52] LABS: Calcium 8.7 MG/DL (8.5-10.1); Potassium 4.9 MMOL/L (3.5-5.1)
[2021-04-07 09:57] LABS: Tissue Transglutaminase IgA Ab < 1.2 U/mL
[2021-04-07] MEDS ORDERED: DEXTROSE 50% 25 GM/50 ML VIAL IV PRN (09:57)
[2021-04-07] MEDS ORDERED: GLUCAGON 1 MG VIAL IM PRN (09:57)
[2021-04-07] MEDS: SODIUM CHLOR 0.9% KCL 20 MEQ 20 MEQ/1,000 ML BAG IV SCH ×2 (10:22→11:58)
[2021-04-07] MEDS: DILTIAZEM CD 120 MG CAPSULE PO SCH ×2 (10:22→23:16)
[2021-04-07] MEDS: ESCITALOPRAM 10 MG TABLET PO SCH (10:22)
[2021-04-07] MEDS: ASPIRIN EC 81 MG TABLET PO SCH (10:22)
[2021-04-07] MEDS: METOPROLOL SUCCINATE XL 50 MG TABLET PO SCH (10:23)
[2021-04-07] MEDS: NYSTATIN 500,000 UNIT/5 ML UDCUP SWISH/SWAL SCH ×4 (10:23→23:14)
[2021-04-07] MEDS: CHOLECALCIFEROL 1,000 UNIT TABLET PO SCH (10:23)
[2021-04-07] MEDS: MAGNESIUM OXIDE 400 MG TABLET PO SCH (10:23)
[2021-04-07] MEDS: OLMESARTAN 20 MG TABLET PO SCH (10:23)
[2021-04-07] MEDS: POTASSIUM CHLORIDE 20 MEQ TABLET PO SCH ×2 (10:24→23:15)
[2021-04-07] MEDS: ENOXAPARIN 40 MG/0.4 ML SYRINGE SUBCUT SCH (13:11)
[2021-04-07] MEDS: GABAPENTIN 600 MG TABLET PO SCH (23:15)
[2021-04-07] MEDS: ATORVASTATIN 80 MG TABLET PO SCH (23:15)
[2021-04-08] MEDS: SODIUM CHLOR 0.9% KCL 20 MEQ 20 MEQ/1,000 ML BAG IV SCH ×2 (01:05→14:28)
[2021-04-08] MEDS: MEROPENEM 500 MG in SODIUM CHLORIDE 0.9% 100 ML IV SCH ×3 (04:45→16:17)
[2021-04-08 06:35] LABS: Basophils # 0.1 10*3/uL (0.0-0.2); Basophils % 0.5 % (0.0-0.8); Eosinophils # 0.6 10*3/uL (0.0-0.87); Eosinophils % 4.7 % (0.00-10.9); Hematocrit 32.8 VOL% (35.7-47.0); Hemoglobin 10.9 GM/DL (12.0-16.0); Immature Granulocytes % 1.3 %; Immature Granulocytes Absolute 0.15 #; Lymphocytes # 1.9 10*3/uL (1.4-4.0); Mean Corpuscular HGB Conc 33.2 GM/DL (32-36); Mean Corpuscular Volume 98.5 FL (87-102); Mean Platelet Volume 9.5 FL (9.6-12.0); Monocytes % 8.4 % (1.7-12.7); Neutrophils % 69.1 % (38.7-73.9); Platelet Count 412 T/CUMM (130-400); Red Blood Count 3.33 MC/CUMM (3.8-5.5); Red Cell Distribution Width 13.1 % (9.3-17.3); White Blood Count 11.6 T/CUMM (4-12)
[2021-04-08] MEDS: CHOLECALCIFEROL 1,000 UNIT TABLET PO SCH (08:58)
[2021-04-08] MEDS: NYSTATIN 500,000 UNIT/5 ML UDCUP SWISH/SWAL SCH ×3 (08:58→16:17)
[2021-04-08] MEDS: OLMESARTAN 20 MG TABLET PO SCH (08:58)
[2021-04-08] MEDS: MAGNESIUM OXIDE 400 MG TABLET PO SCH (08:59)
[2021-04-08] MEDS: POTASSIUM CHLORIDE 20 MEQ TABLET PO SCH (08:59)
[2021-04-08] MEDS: DILTIAZEM CD 120 MG CAPSULE PO SCH (08:59)
[2021-04-08] MEDS: METOPROLOL SUCCINATE XL 50 MG TABLET PO SCH (08:59)
[2021-04-08] MEDS: ESCITALOPRAM 10 MG TABLET PO SCH (08:59)
[2021-04-08] MEDS: ASPIRIN EC 81 MG TABLET PO SCH (08:59)
[2021-04-08] MEDS: ENOXAPARIN 40 MG/0.4 ML SYRINGE SUBCUT SCH (12:44)
[2021-04-08 21:02] VITALS: BP 125/61
== END 2021-04-08 20:27 | DRG 194 ==
LOC: EDUNIT# → EDBD → N.ED 09:53 → SUATTDRO 13:09 → N.EDINP 13:09 → N.5E 15:38
PROVIDERS: ADMIT Internal Medicine; ATTEND Emergency Medicine